=== PATIENT | female | born 1930 | race Hispanic/Latino ===

== ENCOUNTER 2018-01-14 18:37 | Emergency (ER) | payer MEDICARE, BC ==
--- NOTE | 2018-01-14 20:24 | RAD ---
RIGHT ANKLE TWO VIEWS: 01/14/18 HISTORY: Ankle pain and bruising. The bones are demineralized. There is a bimalleolar fracture with an obliquely oriented medial malleo lar fracture and transversely oriented distal fibular fracture. Fractures are minimally displaced. IMPRESSION: 1. Marked bony demineralization. 2. Bimalleolar fracture. POS: [facility]
[2018-01-14] MEDS ORDERED: HYDROcodone/Acetaminophen 5/325 mg Tablet ONE (20:30)
== END 2018-01-14 21:54 | disposition home or self-care (01) ==
LOC: ERS 18:37
DX: S82.841A Displaced bimalleolar fracture of right lower leg, initial encounter for closed fracture (principal); X50.1XXA Overexertion from prolonged static or awkward postures, initial encounter
CPT/HCPCS: 29515